=== PATIENT | male | born 1975 ===

== ENCOUNTER 2024-06-13 06:30 | Day surgery (SDC) | payer OTHER ==
[2024-06-13] MEDS: Dextrose 5%-0.45% NaCl 1,000 ML IV SCH (06:57)
[2024-06-13] MEDS ORDERED: fentaNYL 100 MCG/2 ML SDV IV ONE (07:05)
[2024-06-13] MEDS ORDERED: Midazolam 1 MG/ML 2 ML SDV IV ONE (07:05)
[2024-06-13] MEDS ORDERED: Midazolam 1 MG/ML 2 ML SDV ONE (07:06)
[2024-06-13] MEDS ORDERED: fentaNYL 100 MCG/2 ML SDV ONE (07:06)
[2024-06-13] MEDS: fentaNYL 100 MCG/2 ML SDV IV ONE ×2 (07:41)
[2024-06-13] MEDS: Midazolam 1 MG/ML 2 ML SDV IV ONE ×2 (07:41→07:42)
== END 2024-06-13 09:05 | disposition home or self-care (01) ==
LOC: DL.ENDO 06:30
PROVIDERS: ATTEND Internal Medicine Gastroenterology
DX: R12 Heartburn (principal); E03.9 Hypothyroidism, unspecified; E78.00 Pure hypercholesterolemia, unspecified
CPT/HCPCS: 43239; J2250; J3010; J7799

== ENCOUNTER 2024-06-14 05:28 | Day surgery (SDC) | payer OTHER ==
[2024-06-14] MEDS: Dextrose 5%-0.45% NaCl 1,000 ML IV SCH (05:55)
[2024-06-14] MEDS ORDERED: Midazolam 1 MG/ML 2 ML SDV ONE (06:10)
[2024-06-14] MEDS ORDERED: fentaNYL 100 MCG/2 ML SDV IV ONE (06:11)
[2024-06-14] MEDS ORDERED: fentaNYL 100 MCG/2 ML SDV ONE (06:11)
[2024-06-14] MEDS ORDERED: Midazolam 1 MG/ML 2 ML SDV IV ONE (06:11)
[2024-06-14] MEDS: fentaNYL 100 MCG/2 ML SDV IV ONE ×2 (06:24)
[2024-06-14] MEDS: Midazolam 1 MG/ML 2 ML SDV IV ONE ×6 (06:25→06:30)
== END 2024-06-14 08:07 | disposition home or self-care (01) ==
LOC: DL.ENDO 05:28
PROVIDERS: ATTEND Internal Medicine Gastroenterology
DX: Z12.11 Encounter for screening for malignant neoplasm of colon (principal); E03.9 Hypothyroidism, unspecified
CPT/HCPCS: 45378; J2250; J3010; J7799